=== PATIENT | female | born 1970 | race Hispanic/Latino ===

== ENCOUNTER → 2017-12-29 | Outpatient (CLI) | payer OTHER ==
--- NOTE | 2018-01-15 18:11 | Diagnostic Imaging Report ---
#[id number] - [facility] #BILATERAL DIGITAL SCREENING MAMMOGRAM WITH CAD: 12/29/2017 CLINICAL: Routine screening. Comparison is made to exams dated: 12/24/2016 mammogram, 12/24/2016 ultrasound and 11/19/2016 mammogram - [facility]. Current study contains 4 films. The tissue of both breasts is extremely dense, which lowers the sensitivity of mammography. Current study was also evaluated with a Computer Aided Detection (CAD) system. There is a benign asymmetric density in the right breast that is stable. No significant masses, calcifications, or other findings are seen in either breast. There has been no significant interval change. IMPRESSION: BENIGN There is no mammographic evidence of malignancy. A 1 year screening mammogram is recommended. The patient will be notified by letter of the results. Brian Coronado Jr., D.O. cw/:01/14/2018 11:41:48 Bundle Tier And Labeler: Kristy SU(R)(M), [facility] letter sent: Compared to Prior B9 Mammogram BI-RADS: 2 Benign
== END ==
LOC: MAMMO 09:52
PROVIDERS: ATTEND Internal Medicine
DX: Z12.31 Encounter for screening mammogram for malignant neoplasm of breast (principal)

== ENCOUNTER → 2023-02-03 | Outpatient (CLI) | payer OTHER ==
[~2023-02-03] MED LIST: BLOOD PRESSURE MED PO
== END ==
LOC: US 08:19
PROVIDERS: ATTEND Nurse Practitioner
DX: Z12.11 Encounter for screening for malignant neoplasm of colon (principal); R74.8 Abnormal levels of other serum enzymes; Z68.27 Body mass index [BMI] 27.0-27.9, adult
CPT/HCPCS: 76700

== ENCOUNTER → 2023-02-14 | Day surgery (SDC) | payer OTHER ==
[~2023-02-14] MED LIST changes: +HYOSCYAMINE SULFATE 0.5 MG/ML INJ ONE; +LACTATED RINGER'S 1,000 ML BAG IV ONE; +LIDOCAINE HCL 2% LOCAL INJ 5 ML SDV VIAL INJ ONE; +METOCLOPRAMIDE HCL 10 MG/2ML VIAL ONE; +PROPOFOL IV EMULSION 10 MG/ML 20 ML VIAL ONE; +PROPOFOL IV EMULSION 50 ML IV ONE
[2023-02-14 13:30] VITALS: BP 98/65
== END | disposition home or self-care (01) ==
LOC: OR 12:26
PROVIDERS: ATTEND Internal Medicine Gastroenterology
DX: Z12.11 Encounter for screening for malignant neoplasm of colon (principal); K58.9 Irritable bowel syndrome, unspecified; K64.8 Other hemorrhoids; Z71.3 Dietary counseling and surveillance; I10 Essential (primary) hypertension; R74.8 Abnormal levels of other serum enzymes; Z01.810 Encounter for preprocedural cardiovascular examination; Z79.899 Other long term (current) drug therapy; Z68.27 Body mass index [BMI] 27.0-27.9, adult; Z86.16 Personal history of COVID-19
CPT/HCPCS: 45378; 93005; J1980; J2001; J2704 ×2; J2765; J7121